=== PATIENT | female | born 2000 | race Caucasian/White ===

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

== ENCOUNTER → 2018-03-17 | Outpatient (CLI) | payer BC ==
[2018-03-17 13:41] LABS: PTT PATIENT 26.6 SECONDS (21.0-31.0)
== END | disposition home or self-care (01) ==
LOC: C.LABPVFM 08:14
PROVIDERS: ATTEND Nurse Practitioner Family
DX: N92.1 Excessive and frequent menstruation with irregular cycle (principal)

== ENCOUNTER 2020-06-17 17:20 | Observation (INO) ==
[2020-06-17] MEDS ORDERED: cefOXitin 2,000 MG/60 ML BAG IV STA (17:38)
[2020-06-17] MEDS ORDERED: SODIUM CHLORIDE 0.9% 1000ML 1,000 ML IV SCH (17:45)
--- NOTE | 2020-06-17 19:07 | Emergency Department Note ---
Impression & Plan Acute appendicitis ED Provider Note INFORMANT: Patient ED PROVIDER(S): Devendra Sylvester MD CHIEF COMPLAINT: Right lower quadrant abdominal PLAN: Disposition: Admitted Condition: Good MEDICAL DECISION MAKING: Patient presented to the emergency department because of right lower quadrant abdominal pain. Outpatient CT imaging was concerning for acute appendicitis. The patient declined analgesia. She was hydrated. She was NPO. She was given 2 g of IV Mefoxin. Blood work and urinalysis were ordered. Covid testing was performed and preop manner. The patient had a consultation placed with general surgery. Case was discussed with Cresencio Vuong PA-C for Dr. Vuong. Patient was evaluated in the ER and admitted to the operative suite for further management of acute appendicitis. Triage Nursing notes reviewed and agree them. Vital Signs: reviewed and remarkable for no significant abnormalities Differential diagnosis: Appendicitis, ovarian cyst, ovarian torsion, ectopic , TOA, PID, infections, diverticulitis, UTI, obstruction, mesenteric ischemia, aortic pathology, inflammatory bowel disease, renal colic, PUD, pancreatitis, biliary pathology, hernia, volvulus, constipation, as well as other pathologies. Diagnostics interpreted by me: Imaging studies: CT scan of the abdomen pelvis done as an outpatient basis was reviewed. Findings consistent with acute appendicitis. I refer you to the EMR for further details. Consultation(s): General surgery HPI: The patient is a 19 year old female who presents to the Emergency Room with complaints of right lower quadrant abdominal pain. This started 3:00 this and is persistent. The patient also notes the following associated symptoms, general malaise. The patient has found none relieving factors. Current pain is rated as 3/10. Patient declines analgesia. She had an outpatient CT scan performed by the primary office and was found to have acute appendicitis. Pt denies LOC, headache, fevers, chills, diaphoresis, visual changes, neck pain, chest pain, breathing difficulties, nausea, vomiting, back pain, melena, hematochezia, urinary symptoms, numbness, weakness, lymphadenopathy, rash, or other complaints. ROS: See above HPI for pertinent positives & negatives. A total of 10 systems reviewed and were otherwise negative. PAST MEDICAL HISTORY:See Below, patient denies PAST SURGICAL HISTORY:Wilder teeth. FAMILY HISTORY:See Below SOCIAL HISTORY:See Below, quit smoke HOME MEDICATIONS:See Below ALLERGIES:See Below VITALS:See Below PHYSICAL EXAMINATION: GENERAL: Awake, alert, well-appearing, in no distress HENT: Normocephalic, atraumatic. Oropharynx unremarkable. EYES: Normal conjunctiva. Sclera non-icteric. NECK: Inspection normal. Non-tender. Supple. No nuchal rigidity. FROM. No masses. RESPIRATORY: Clear to auscultation. No wheezes. No rales. Normal respiratory effort. CARDIAC: Normal rate. Normal rhythm. No murmurs. No rubs. Extremities warm and well perfused. Pulses equal. No JVD. GI: Soft, non-distended. Right lower quadrant tenderness to palpation. No rebound or guarding. No masses. RECTAL: Deferred. MUSCULOSKELETAL: Atraumatic. Chest examination reveals no tenderness. The back is symmetrical on inspection without obvious abnormality. There is no CVA tenderness to palpation. No joint edema. LOWER EXTREMITIES: Calves are equal size bilaterally and non-tender. No edema. No discoloration. NEURO: Normal sensorium. No sensory or motor deficits noted. SKIN: No rash or jaundice noted. Devendra Sylvester MD Past Med/Surg History Social History Smoking Status: Never smoker Feels Safe at Home: Yes Allergies Allergies Allergy/AdvReac Type Severity Reaction Status Date / Time No Known Allergies Allergy Verified 06/17/20 18:12 Home Meds Home Medications Medication Instructions Recorded Confirmed norgestimate-ethinyl estradiol 1 tab PO HS 06/17/20 06/17/20 Results & Data (ED) Vital Signs Vital Signs - 24 hr 06/17/20 17:28 Temperature 37.5 C Temperature Source Oral Pulse Rate 115 H Respiratory Rate 20 Blood Pressure 137/65 Blood Pressure Mean 89 Blood Pressure Position Sitting Pulse Oximetry 98 Sepsis Recent Fever Within 48 Hours Yes Sepsis New/Unexplained Change in Mental Status No Sepsis Action Taken by Nursing No Action Required Discharge Plan Visit Data Chief Complaint: Abnormal Labs/Diagnostic Testing Stated Complaint: ABNORMAL CT ED Provider: Devendra Sylvester Discharge Problem: Acute appendicitis Forms Stand Alone Forms: My [facility] [employer] Prescriptions Prescriptions: No Action norgestimate-ethinyl estradiol 0.25-35 mg-mcg tablet 1 tab PO HS RF: 0
[2020-06-17 19:25] LABS: Basophils # (auto) 0.03 K/uL (0-0.2); Basophils % (auto) 0.3 %; Eosinophils # (auto) 0.03 K/uL (0-0.5); Eosinophils % (auto) 0.3 %; Hematocrit (blood only) 41.4 % (37-47); Hemoglobin 14.7 g/dL (12.0-16.0); Immature Granulocytes # (auto) 0.01 K/uL (0.00-0.02); Immature Granulocytes % (auto) 0.1 %; Lymphocytes # (auto) 2.29 K/uL (1.2-3.4); Lymphocytes % (auto) 24.9 %; Mean Corpuscular Hemoglobin 30.2 pg (25-34); Mean Corpuscular Hgb Conc 35.5 g/dL (32-36); Mean Platelet Volume 10.5 fL (7.4-10.4); Monocytes # (auto) 0.62 K/uL (0.11-0.59); Monocytes % (auto) 6.7 %; Neutrophils # (auto) 6.21 K/uL (1.4-6.5); Neutrophils % (auto) 67.7 %; Platelet Count 226 K/uL (130-400); RDW Coefficient of Variation 13.8 % (11.5-14.5); RDW Standard Deviation 42.7 fL (36.4-46.3); Red Blood Count 4.87 M/uL (4.2-5.4); White Blood Count 9.19 K/uL (4.8-10.8)
[2020-06-17 19:26] LABS: Appearance Urine Clear (Clear); Bilirubin Urine Negative (Negative); Blood Urine Negative (Negative); Color Urine Yellow; Glucose Urine UA Negative (Negative); Ketones Urine Negative (Negative); Leukocyte Esterase Urine Negative (Negative); Nitrite Urine Negative (Negative); Protein Urine Negative (Negative); Specific Gravity Urine 1.045 (1.000-1.030); Urobilinogen Urine Negative (Negative)
--- NOTE | 2020-06-17 19:37 | History & Physical Report ---
Date of Service June 17, 2020 Assessment & Plan (1) Acute appendicitis: Admission and Anticipated Discharge Date Admission Date: -plan for appendectomy tonight -procedure discussed with pt. and will be further discussed by attending surgeon -COVID test is pending -discussed with anesthesia -abx. given in ED--mefoxin History of Present Illness Chief Complaint: Abdominal pain Primary Care Provider: SANDY Monge 18 year old female presented top ED secondary to abdominal pain that started at 0300 this morning. The pain was generalized, but shifted to RLQ. She has no fevers or N/V. Pain is worse with palpation of RLQ. No palliative factors noted. The pt. had an outpt. CT scan that showed concern for an early acute appendicitis. Urine test is (-). WBC is normal and pt. is afebrile. At the time of my exam she was in no distress. Allergies Allergy/AdvReac Type Severity Reaction Status Date / Time No Known Allergies Allergy Verified 06/17/20 18:12 Home Medications Home Medications Medication Instructions Recorded Confirmed Type norgestimate-ethinyl estradiol 1 tab PO HS 06/17/20 06/17/20 History Past Med/Surg History Social History Smoking Status: Never smoker Feels Safe at Home: Yes Review of Systems Constitutional: no fever and no chills Eyes: no diplopia Ear, Nose, Mouth, Throat: no ear pain Respiratory: no cough and no dyspnea Cardiovascular: no chest pain Gastrointestinal: + abdominal pain; no nausea and no vomiting Genitourinary: no dysuria Musculoskeletal: no back pain Integumentary: no rash Neurologic: no localized weakness Physical Exam Constitutional: well developed and well nourished; no acute distress Eyes: no conjunctival abnormality ENMT: Ears: no hearing impairment Neck: trachea midline Respiratory: normal respiratory effort, lungs clear to auscultation Cardiovascular: Rate/Rhythm: regular rate and regular rhythm Gastrointestinal (Abdomen): soft, non-distended, BS are present; pain with palpation in RLQ, (+) rovsing sign and (+) rebound tenderness Musculoskeletal: no calf pain Skin: no rashes, warm and dry Neurologic: moves all extremities Psychiatric: A+Ox3, euthymic affect Results & Data Results & Data ([facility]) Vital Signs (Past 12 Hours) Vital Signs Temp Pulse Resp BP BP Pulse Ox 06/17/20 19:22 148/78 H 06/17/20 19:00 84 18 98 06/17/20 17:28 37.5 C 115 H 20 137/65 98 Supervising Physician Co-Signing Physician Notes I personally saw and evaluated the patient with Cresencio Schroeder PA-C and agree with the assessment and plan. -19 yo female with acute appendicitis -CT results and images reviewed, consistent with acute appendicitis -Keep NPO/IVF -ABX -To OR tonight laparoscopic appendectomy, possible open -Consent obtained, risks discussed including bleeding, infection, leak, abscess PG Care Time/CCT Total # of Minutes Spent Total Time Spent with Patient: Total time spent is greater than 50% in coordination of care (as documented) at patient's floor/unit and/or counseling patient: Coding Level of Care Code 45809 OBS Care - Level 3 Diagnoses Acute appendicitis K35.80
[2020-06-17 19:42] LABS: Albumin Level 3.6 gm/dl (3.4-5.0); BUN Creatinine Ratio 10.7 (10-20); Calcium 9.3 mg/dl (8.5-10.1); Creatinine Clr Calc Pharmacy 118.7 ml/min; Est GFR (African American) 127.9; Est GFR (Non-African American) 110.4; Potassium 3.8 mmol/L (3.5-5.1)
[2020-06-17 19:45] LABS: Albumin Globulin Ratio 0.8 (0.9-2); Bilirubin,Total 0.6 mg/dl (0.2-1); Globulin 4.6 gm/dl (2.5-4.0); Total Protein 8.2 gm/dl (6.4-8.2)
[2020-06-17 19:48] LABS: Pregnancy Test, Serum Negative (Negative)
[2020-06-17] MEDS: BUPIVACAINE/EPINEPHRINE 0.25% 1:200,000 30 ML VIAL ONE ×2 (19:58→21:30)
[2020-06-17] MEDS ORDERED: MIDAZOLAM HCL 1 MG/ML 2ML VIAL ONE (20:03)
[2020-06-17] MEDS ORDERED: ROCURONIUM BROMIDE 10 MG/ML 5 ML VIAL IV ONE (20:04)
[2020-06-17] MEDS ORDERED: DEXAMETHASONE SOD INJ 4 MG/ML VIAL ONE (20:04)
[2020-06-17] MEDS ORDERED: PROPOFOL IV EMULSION 10 MG/ML 20 ML VIAL IV ONE (20:04)
[2020-06-17] MEDS ORDERED: LIDOCAINE HCL 2% 2 ML VIAL/AMP(20MG/ML) INFIL ONE (20:04)
[2020-06-17] MEDS ORDERED: ONDANSETRON INJ 2 MG/ML 2 ML VIAL ONE (20:04)
[2020-06-17] MEDS ORDERED: fentaNYL citrate 100 MCG/2 ML VIAL ONE ×2 (20:04→22:02)
[2020-06-17] MEDS ORDERED: GLYCOPYRROLATE 0.2 MG/ML VIAL ONE (20:05)
[2020-06-17] MEDS ORDERED: NEOSTIGMINE METHYLSULFATE 5 MG/5 ML SYR ONE (20:05)
--- NOTE | 2020-06-17 20:24 | Anesthesiology Consultation ---
Date of Service June 17, 2020 Assessment & Plan Chart Review Chart Review: Acceptable Risk for Surgery Consults Requested none History Surgery Operation Date: 06/17/20 20:15 Proposed Procedures p Laparoscopic Appendectomy, Possible Open Appendectomy(Not Applicable) - Andrés Vuong DO Height/Weight Height: 5 ft 5 in Weight: 77.1 kg Allergies Allergy/AdvReac Type Severity Reaction Status Date / Time No Known Allergies Allergy Verified 06/17/20 18:12 Medications Home Medications Medication Instructions Recorded Confirmed Last Taken norgestimate-ethinyl estradiol 1 tab PO HS 06/17/20 06/17/20 06/16/20 NPO Date Last Intake of Fluids: 06/17/20 Time Last Intake of Fluids: 16:45 Last Intake of Fluids Comment: CT contrast Date Last Intake of Solids: 06/17/20 Time Last Intake of Solids: 14:00 Last Intake of Solids Comment: Banana Social History Smoking Status: Never smoker Physical Exam Vital Signs Last Vital Signs Temp 37.5 C 06/17/20 17:28 Pulse 100 H 06/17/20 19:59 Resp 17 06/17/20 19:59 BP 141/79 H 06/17/20 19:59 Pulse Ox 99 06/17/20 19:59 Testing Laboratory Results 06/17/20 19:15 06/17/20 19:15 Urine Color Yellow 06/17/20 19:15 Urine Appearance Clear (Clear) 06/17/20 19:15 Urine pH 7.0 (4.5-7.5) 06/17/20 19:15 Ur Specific [place] 1.045 (1.000-1.030) H 06/17/20 19:15 Urine Protein Negative (Negative) 06/17/20 19:15 Urine Glucose (UA) Negative (Negative) 06/17/20 19:15 Urine Ketones Negative (Negative) 06/17/20 19:15 Urine Nitrite Negative (Negative) 06/17/20 19:15 Ur Leukocyte Esterase Negative (Negative) 06/17/20 19:15
--- NOTE | 2020-06-17 22:01 | Operative Report ---
PG Post Operative Report Pre & Post Diagnosis Operation Date: 06/17/20 20:15 Pre-Op Diagnosis: Acute appendicitis Post-Op Diagnosis: Acute appendicitis without perforation I identified the patient and participated in the time-out.: Yes Procedure Operation Date: 06/17/20 20:15 Actual Procedures p Laparoscopic Appendectomy(Not Applicable) - Andrés Vuong DO Surgeon Andrés Vuong DO Director Of Real Estate Cresencio Schroeder PA-C Estimated Blood Loss 5 Findings See Below Mildly inflamed, dilated appendix Fluids see anesthesia record Specimens Appendix to pathology Drains None Anesthesia Type General Complications none Disposition Disposition: Recovery Room Indications 19 yo female with acute appendicitis Description of Procedure The patient was brought to the OR and placed in the supine position and SCD's placed. At this time he underwent general endotracheal anesthesia without incident. At this time a Cummings catheter was placed under sterile conditions. His abdomen was prepped and draped in the usual sterile fashion. He was given appropriate pre-operative antibiotics. A timeout was called, the procedure was verified as Laparoscopic appendectomy, possible open. Surgical, anesthesia and nursing teams agreed and the procedure was begun. After injection of 0.25% Marcaine with epinephrine, a supraumbilical incision was made using a #11 blade scalpel and carried down to the fascia with a hemostat. The abdomen was then elevated with towel clamps and entered using the Veress needle confirming position using the saline drop test. Pneumoperitoneum was established and 5mm trocar was placed. Laparoscope was introduced. No injury was seen from our entrance to the abdomen. At this time a 5mm suprapubic port and 12mm LLQ port were placed under direct visualization. The patient was placed in Trendelenburg and rotated to the left. At this time the appendix was visualized and the tip was freed and elevated toward the abdominal wall. The appendix appeared mildly inflamed, dilated and edematous. A window was created in the mesoappendix at the base of the appendix. A 45mm purple load stapler was then fired across the base of the appendix which appeared healthy. The mesoappendix was then taken using Harmonic device. The appendix was then placed in an Endocatch bag and removed through the LLQ port site. Staple line was inspected and was intact. Hemostasis was complete. The 12 mm port was then closed at the fascial level using a 0 Vicryl suture using the suture passer. All ports were removed under direct visualization and no bleeding was noted. The abdomen was desufflated and the skin was closed using 4-0 Monocryl in a subcuticular fashion. Sterile dressings were applied. Cummings catheter was removed. The patient was then awakened from anesthesia having remained stable throughout the entire case and transported to PACU. All needle and sponge counts were correct x 2. The physician's unit assistant was present and scrubbed for the entirety of the case. He was critical in positioning the patient, prepping and draping, retraction and exposure, driving the laparoscope, closure of the incisions, and placement of the dressings. I attest to the content of the Intraoperative Record and any orders documented therein. Any exceptions are noted below.
[2020-06-17] MEDS ORDERED: ePHEDrine sulfate 50 MG/ML AMP IV PRN (22:11)
[2020-06-17] MEDS ORDERED: HYDROmorphone INJ 2 MG/ML SYR/VIAL IV PRN (22:11)
[2020-06-17] MEDS ORDERED: PROMETHAZINE HCL 12.5 MG in SODIUM CHLORIDE 0.9% 50 ML IV PRN (22:11)
[2020-06-17] MEDS ORDERED: METOCLOPRAMIDE HCL INJ 5 MG/ML 2 ML VIAL IV PRN (22:11)
[2020-06-17] MEDS ORDERED: ATROPINE SULFATE 0.1 MG/ML 10ML SYR IV PRN (22:11)
[2020-06-17] MEDS ORDERED: ACETAMINOPHEN 1,000 MG/100 ML VIAL IV STA (22:11)
[2020-06-17] MEDS ORDERED: fentaNYL citrate 100 MCG/2 ML VIAL IV PRN (22:11)
[2020-06-17] MEDS ORDERED: KETOROLAC 30 MG/ML VIAL IV PRN (22:11)
[2020-06-17] MEDS ORDERED: ONDANSETRON INJ 2 MG/ML 2 ML VIAL IV PRN ×2 (22:11→23:03)
[2020-06-17] MEDS ORDERED: ACETAMINOPHEN 1000 MG/100 ML IV IV ONE (22:12)
[2020-06-17] MEDS ORDERED: KETOROLAC 30 MG/ML VIAL ONE (22:13)
[2020-06-17] MEDS ORDERED: MoRPHine SULFATE 2 MG/ML CARP IV PRN (23:03)
[2020-06-17] MEDS ORDERED: LACTATED RINGER'S 1,000 ML IV SCH (23:03)
--- NOTE | 2020-06-18 00:55 | Anesthesiology Progress Note ---
Date of Service June 18, 2020 Anesthesia Post Procedure Vital Signs Vital Signs: Temp Pulse Pulse Pulse Resp BP BP 06/18/20 00:00 36.9 C 64 15 06/17/20 23:33 36.8 C 64 14 06/17/20 23:00 36.8 C 80 16 06/17/20 22:45 62 13 122/60 06/17/20 22:35 36.7 C 56 L 12 111/71 06/17/20 22:25 54 L 12 122/72 06/17/20 22:15 60 13 115/57 L 06/17/20 22:06 36.8 C 64 13 129/51 L 06/17/20 19:59 100 H 17 141/79 H 06/17/20 19:22 148/78 H 06/17/20 19:00 84 18 06/17/20 17:28 37.5 C 115 H 20 137/65 BP Pulse Ox 06/18/20 00:00 122/67 99 06/17/20 23:33 105/65 97 06/17/20 23:00 107/66 100 06/17/20 22:45 100 06/17/20 22:35 100 06/17/20 22:25 100 06/17/20 22:15 98 06/17/20 22:06 96 06/17/20 19:59 99 06/17/20 19:22 06/17/20 19:00 98 06/17/20 17:28 98 Pain Intensity Right Lower Abdomen: Pain Intensity: 2 Abdomen: Pain Intensity: 9 Transfer of Care Handoff Completed per policy Notes Mental Status: alert / awake / arousable and participated in evaluation Patient Amnestic to Procedure: Yes Nausea / Vomiting: adequately controlled Pain: adequately controlled Airway Patency, RR, SpO2: stable & adequate BP & HR: stable & adequate Hydration State: stable & adequate Anesthetic Complications: no major complications apparent
[2020-06-18] MEDS ORDERED: CONTRACEPTIVE EXT SCH (01:15)
[2020-06-18] MEDS ORDERED: ACETAMINOPHEN 1,000 MG/100 ML VIAL IV SCH (06:00)
[2020-06-18] MEDS ORDERED: IBUPROFEN 200 MG TAB PO PRN (07:34)
--- NOTE | 2020-06-18 07:38 | Surgery Progress Note ---
Date of Service June 18, 2020 Assessment & Plan (1) Acute appendicitis: s/p laparoscopic appendectomy overall looks well this AM having some expected post procedural pain, managed with tylenol. currently refusing narcotics. will add some ibuprofen to regimen incisions c/d/i will advance diet this am dispo today pending toleration of diet and ongoing pain control will need follow up in clinic with dr. adorno within 1-2 weeks Admission and Anticipated Discharge Date Admission Date: June 17, 2020 Supervising Physician Co-Signing Physician Notes I personally saw and evaluated the patient with Brit Mujica PA-C and agree with the assessment and plan. 19 yo female POD#1 lap appy -Advance diet -No need for ABX -Ok for discharge home if tolerates diet Subjective Patient seen and examined. Feeling a little bit more pain this morning with moving around, but it has been manageable with tylenol. She has tolerated clears without nausea/vomiting. Physical Exam Physical Exam: awake/alert Respiratory: normal respiratory effort Gastrointestinal (Abdomen): Inspection/Auscultation: + abdominal surgical incision (c/d/i); abdomen not distended Percussion/Palpation: + abdomen tender (some ttp [place]-incisionally, L side) and abdomen soft Results & Data ([facility]) Vital Signs (Past 12 Hours) Vital Signs Temp Pulse Pulse Resp BP BP Pulse Ox 06/18/20 02:03 37.0 C 61 14 106/65 99 06/18/20 01:03 37 C 68 16 101/63 98 06/18/20 00:00 36.9 C 64 15 122/67 99 06/17/20 23:33 36.8 C 64 14 105/65 97 06/17/20 23:00 36.8 C 80 16 107/66 100 06/17/20 22:45 62 13 122/60 100 06/17/20 22:35 36.7 C 56 L 12 111/71 100 06/17/20 22:25 54 L 12 122/72 100 06/17/20 22:15 60 13 115/57 L 98 06/17/20 22:06 36.8 C 64 13 129/51 L 96 06/17/20 19:59 100 H 17 141/79 H 99 PG Care Time/CCT Total # of Minutes Spent Total Time Spent with Patient: Total time spent is greater than 50% in coordination of care (as documented) at patient's floor/unit and/or counseling patient: Coding Level of Care Code None Diagnoses Acute appendicitis K35.80
[2020-06-18] MEDS ORDERED: ORAL CONTRACEPTIVE~ORDER AWAITING ACTION SCH (08:00)
--- NOTE | 2020-06-19 20:42 | Discharge Summary ---
Date of Service June 19, 2020 Admission HPI Per Admitting Provider 18 year old female presented top ED secondary to abdominal pain that started at 0300 this morning. The pain was generalized, but shifted to RLQ. She has no fevers or N/V. Pain is worse with palpation of RLQ. No palliative factors noted. The pt. had an outpt. CT scan that showed concern for an early acute appendicitis. Urine test is (-). WBC is normal and pt. is afebrile. At the time of my exam she was in no distress. Admission Exam (Per Admitting) Constitutional WD/WN, vitals as above Eyes PERRL, conjunctivae normal, anicteric sclerae ENMT external ear and nose normal, oropharynx normal Neck trachea midline, no thyromegaly Respiratory normal respiratory effort, lungs clear to auscultation Cardiovascular RRR, no murmur, no edema Gastrointestinal (Abdomen) Inspection/Auscultation: abdomen normal to inspection; abdomen not distended Percussion/Palpation: + abdomen tender (RLQ), + guarding (RLQ) and abdomen soft Musculoskeletal no cyanosis or clubbing, extremities motor strength 5/5 Skin no rashes, warm and dry Psychiatric A+Ox3, euthymic affect Discharge Data Consultations 06/17/20 19:02 ED Decision to Admit Stat Procedures Performed Operation Date: 06/17/20 20:15 Actual Procedures p Laparoscopic Appendectomy(Not Applicable) - Andrés Vuong DO Hospital Course (1) Acute appendicitis: Patient was admitted, kept NPO, given IV ABX and taken to the OR for a laparoscopic appendectomy which she tolerated well. Appendix was not perforated. Post-operatively she was afebrile, tolerating a diet, ambulating without difficulty and stable for discharge home. Coding Level of Care Code D/C Day Management <30 mins Diagnoses Acute appendicitis K35.80
== END 2020-06-18 10:50 | disposition home or self-care (01) ==
LOC: ED 17:20 → OR 20:05 → 3E 20:05